=== PATIENT | male | born 1940 | race Caucasian/White ===

== ENCOUNTER 2022-12-11 15:33 | Outpatient (OUT) | payer MEDICARE, SELFPAY ==
[2022-12-11 15:52] LABS: Basophils Absolute Auto 0.1 10^3/uL (0.0-0.1); Basophils Percent Auto 0.6 % (0.2-2.0); Eosinophils Absolute Auto 0.1 10^3/uL (0.0-0.7); Eosinophils Percent Auto 1.6 % (0.9-7.0); Hematocrit 45.4 % (42.0-54.0); Hemoglobin 15.1 g/dL (14.0-18.0); Immature Granulocytes Abs Auto 0.04 10^3/uL (0.00-0.03); Immature Granulocytes Pct Auto 0.5 % (0.0-0.5); Lymphocytes Absolute Auto 2.1 10^3/uL (1.2-3.8); Mean Corpuscular HGB Conc 33.3 g/dL (29.9-35.2); Mean Corpuscular Volume 90.1 fL (80.0-94.0); Mean Platelet Volume 9.8 fL (9.5-13.5); Monocytes Absolute Auto 0.8 10^3/uL (0.3-0.8); Monocytes Percent Auto 9.5 % (1.7-12.0); Neutrophils Absolute Auto 5.5 10^3/uL (1.4-6.5); Neutrophils Percent Auto 63.8 % (43.0-75.0); Platelet Count 248 10^3/uL (150-450); Red Blood Count 5.04 10^6/uL (4.70-6.10); Red Cell Distribution Width 13.5 % (11.0-15.0); White Blood Count 8.5 10^3/uL (4.0-11.0)
[2022-12-11 16:37] LABS: Alanine Aminotransferase 28 U/L (16-63); Albumin Globulin Ratio 0.8; Albumin Level 3.8 g/dL (3.4-5.0); Alkaline Phosphatase 48 U/L (46-116); Anion Gap 12.5; Aspartate Amino Transferase 26 U/L (15-37); BUN Creatinine Ratio 15.7; Bilirubin Total 0.8 mg/dL (0.2-1.0); Calcium 9.5 mg/dL (8.5-10.1); Carbon Dioxide 29.5 mmol/L (21.0-32.0); Chloride 101 mmol/L (98-107); Estimated GFR (African America >60 (>=60); Estimated GFR (Non-African Ame >60 (>=60); Globulin 4.6 g/dL; Glucose 80 mg/dL (74-106); Sodium 140 mmol/L (136-145); Total Protein 8.4 g/dL (6.4-8.2)
[2022-12-11 16:49] LABS: Prostate Specific Antigen Scrn 9.41 ng/mL (<=4.00)
== END 2022-12-11 15:34 | disposition home or self-care (01) ==
PROVIDERS: PCP Family Medicine; Visit Provider Family Medicine
DX: L30.9 Dermatitis, unspecified (principal); N40.0 Benign prostatic hyperplasia without lower urinary tract symptoms; M19.90 Unspecified osteoarthritis, unspecified site; I10 Essential (primary) hypertension
CPT/HCPCS: 36415; 80053; 85025; G0103

== ENCOUNTER 2024-11-20 11:54 | Outpatient (OUT) | payer MEDICARE, SELFPAY ==
--- OUTSIDE RECORDS SUMMARY | 2024-11-20 12:00 | XMS_ITS | CCD ---
Author Organization [facility] ion Partnership [facility] Care Team Providers Care Configuration Management Analyst Name Role Phone ROCIO GARCIA Unavailable Unavailable Anjana Vargas Unavailable HOUSE, DR TOMPKINS Attending Unavailable HOUSE, DR TOMPKINS Consulting Unavailable HOUSE, DR TOMPKINS Primary Care Unavailable HOUSE, DR TOMPKINS Admitting Unavailable HOUSE, DO LEDA Krishna Attending Unavailable HOUSE, LEDA Krishna Primary Care Unavailable HOUSE, DO LEDA Krishna Attending Unavailable HOUSE, LEDA Krishna Primary Care Unavailable HOUSE, LEDA Krishna Primary Care Unavailable HOUSE, DO LEDA Krishna Attending Unavailable Problems Active Problems Problem Classification Problem Date Documented Date Episodic/Chronic Essential hypertension (1 source) Essential (primary) hypertension; Translations: [ESSENTIAL PRIMARY HYPERTENSION] Onset: 09-20-2021 Chronic Fluid and electrolyte disorders (4 sources) Hypokalemia; Translations: [HYPOKALEMIA] Onset: 09-19-2021 Episodic Hyperplasia of prostate (1 source) Benign prostatic hyperplasia without lower urinary tract symptoms; Translations: [BENIGN PROSTATIC HYPRPLASIA WO LUTS] Onset: 09-20-2021 Chronic Osteoarthritis (1 source) Unspecified osteoarthritis, unspecified site; Translations: [UNSPECIFIED OSTEOARTHRITIS UNS SITE] Onset: 09-20-2021 Chronic Past or Other Problems Problem Classification Problem Date Documented Da te Episodic/Chronic Immunizations and screening for infectious disease (1 source) Encounter for screening for other viral diseases Onset: 06-02-2021 Resolved: 06-02-2021 Episodic Results Test Name Value Interpretation Reference Range Facility CBC AUTO DIFFon 09-19-2021 BASO # 0.0 103/ul Normal 0.0-0.1 [facility] Comment on above: Performed By: #### C BC #### [facility] [address] [place], [place] [address] Dr. Romina Beckwith Basophils/100 WBC (Bld) 0.4 % Normal 0.2-2.0 [facility] Comment on above: Performed By: #### C BC #### [facility] [address] [place] [address] [address] Romina Beckwith EO # 0.2 103/ul Normal 0.0-0.7 [facility] Comment on above: Performed By: #### C BC #### [facility] [address] [place] [address] Dr. Romina Beckwith Eosinophils/100 WBC (Bld) 2.1 % Normal 0.9-7.0 [facility] Comment on above: Performed By: #### C BC #### [facility] [address] [place] [address] Dr. Romina Beckwith Erythrocyte distribution width (RBC) [Ratio] 13.7 % Normal 11.0-15.0 [facility] Comment on above: Performed By: #### C BC #### [facility] [address] [place] [address] Dr. Romina Beckwith Hematocrit (Bld) [Volume fraction] 48.2 % Normal 42.0-54.0 [facility] Comment on above: Performed By: #### C BC #### [facility] [address] [place] [address] Dr. Romina Beckwith Hemoglobin (Bld) [Mass/Vol] 15.7 g/dL Normal 14.0-18.0 [facility] Comment on above: Performed By: #### C BC #### [facility] [address] [place] [address] Dr. Romina Beckwith IG # 0.03 10e3/ul Normal 0.00-0.03 [facility] Comment on above: Performed By: #### C BC #### [facility] [address] [place] [address] Dr. Romina Beckwith IG % 0.3 % Normal 0.0-0.5 [facility] Comment on above: Performed By: #### C BC #### [facility] [address] [place] [address] Dr. Romina Beckwith LYMPH # 2.3 103/ul Normal 1.2-3.8 [facility] Comment on above: Performed By: #### C BC #### [facility] [address] [place] [address] Dr. Romina Beckwith Lymphocytes/100 WBC (Bld) 24.5 % Normal 20.5-60.0 [facility] Comment on above: Performed By: #### C BC #### [facility] [address] [place] [address] Dr. Romina Beckwith MANUAL DIFF REQ NO Normal [facility] Comment on above: Performed By: #### C BC #### [facility] [address] [place] [address] Dr. Romina Beckwith MCH (RBC) [Entitic mass] 29.5 pg Normal 25.9-34.0 [facility] Comment on above: Performed By: #### C BC #### [facility] [address] [place] [address] Dr. Romina Beckwith MCHC (RBC) [Mass/Vol] 32.6 g/dL Normal 29.9-35.2 [facility] Comment on above: Performed By: #### C BC #### [facility] [address] [place] [address] Dr. Romina Beckwith MCV (RBC) [Entitic vol] 90.6 fL Normal 80.0-94.0 [facility] Comment on above: Performed By: #### C BC #### [facility] [address] [place] [address] Dr. Romina Beckwith MONO # 0.8 103/ul Normal 0.3-0.8 [facility] Comment on above: Performed By: #### C BC #### [facility] [address] [place] [address] Dr. Romina Beckwith Monocytes/100 WBC (Bld) 8.9 % Normal 1.7-12.0 [facility] Comment on above: Performed By: #### C BC #### [facility] [address] [place] [address] Dr. Romina Beckwith NEUT # 5.9 103/ul Normal 1.4-6.5 [facility] Comment on above: Performed By: #### C BC #### [facility] [address] [place] [address] Dr. Romina Beckwith Neutrophils/100 WBC (Bld) 63.8 % Normal 43.0-75.0 [facility] Comment on above: Performed By: #### C BC #### [facility] [address] [place] [address] Dr. Romina Beckwith Platelet mean volume (Bld) [Entitic vol] 10.5 fL Normal 9.5-13.5 [facility] Comment on above: Performed By: #### C BC #### [facility] [address] [place] [address] Dr. Romina Beckwith PLT 268 103/ul Normal 150-450 [facility] Comment on above: Performed By: #### C BC #### [facility] [address] [place] [address] Dr. Romina Beckwith RBC 5.32 106/ul Normal 4.70-6.10 [facility] Comment on above: Performed By: #### C BC #### [facility] [address] [place] [address] Dr. Roimna Beckwith WBC 9.3 103/ul Normal 4.0-11.0 [facility] Comment on above: Performed By: #### C BC #### [facility] [address] [place] [address] Dr. Romina Beckwith PROF 14(COMP METB)on 022 Albumin [Mass/Vol] 3.8 g/dL Normal 3.4-5.0 [facility] Comment on above: Performed By: #### C MP #### [facility] [address] [place] [address] Dr. Romina Beckwith Albumin/Globulin [Mass ratio] 0.9 {ratio} Normal [facility] Comment on above: Performed By: #### C MP #### [facility] [address] [place] [address] Dr. Romina Beckwith ALP [Catalytic activity/Vol] 48 U/L Normal 46-116 [facility] Comment on above: Performed By: #### C MP #### [facility] [address] [place] [address] Dr. Romina Beckwith ALT [Catalytic activity/Vol] 30 U/L Normal 16-63 [facility] Comment on above: Performed By: #### C MP #### [facility] [address] [place] [address] Dr. Romina Beckwith Anion gap [Moles/Vol] 15.0 mmol/L Normal [facility] Comment on above: Performed By: #### C MP #### [facility] [address] [place] [address] Dr. Romina Beckwith AST [Catalytic activity/Vol] 26 U/L Normal 15-37 [facility] Comment on above: Performed By: #### C MP #### [facility] [address] [place] [address] Dr. Romina Beckwith Bilirubin [Mass/Vol] 0.7 mg/dL Normal 0.2-1.0 [facility] Comment on above: Performed By: #### C MP #### [facility] [address] [place] [address] Dr. Romina Beckwith Calcium [Mass/Vol] 9.3 mg/dL Normal 8.5-10.1 [facility] Comment on above: Performed By: #### C MP #### [facility] [address] [place] [address] Dr. Romina Beckwith Chloride [Moles/Vol] 102 mmol/L Normal 98-107 [facility] Comment on above: Performed By: #### C MP #### [facility] [address] [place] [address] Dr. Romina Beckwith CO2 [Moles/Vol] 27.2 mmol/L Normal 21.0-32.0 [facility] Comment on above: Performed By: #### C MP #### [facility] [address] [place] [address] Dr. Romina Beckwith Creatinine [Mass/Vol] 1.15 mg/dL Normal 0.70-1.30 [facility] Comment on above: Performed By: #### C MP #### [facility] [address] [place] [address] Dr. Romina Beckwith EGFR-AF ERITREAN >60 Normal >=60 [facility] Comment on above: Performed By: #### C MP #### [facility] [address] [place] [address] [address] Romina Beckwith EGFR-NON AF ERITREAN >60 Normal >=60 [facility] Comment on above: Performed By: #### C MP #### [facility] [address] [address] [address] Romina Beckwith Globulin (S) [Mass/Vol] 4.3 g/dL Normal [facility] Comment on above: Performed By: #### C MP #### [facility] [address] [address] [address] Romina Beckwith Glucose [Mass/Vol] 93 mg/dL Normal 74-106 [facility] Comment on above: Performed By: #### C MP #### [facility] [address] [address] [address] Romina Beckwith Potassium [Moles/Vol] 3.2 mmol/L Critically low 3.5-5.1 [facility] Comment on above: Performed By: #### C MP #### [facility] [address] [address] [address] Romina Beckwith Protein [Mass/Vol] 8.1 g/dL Normal 6.4-8.2 [facility] Comment on above: Performed By: #### C MP #### [facility] [address] [place] [address] [address] Romina Beckwith Sodium [Moles/Vol] 141 mmol/L Normal 136-145 [facility] Comment on above: Performed By: #### C MP #### [facility] [address] [address] [address] Romina Beckwith Urea nitrogen [Mass/Vol] 16.0 mg/dL Normal 7.0-18.0 [facility] Comment on above: Performed By: #### C MP #### [facility] [address] [place] [address] [address] Romina Beckwith Urea nitrogen/Creatini ne [Mass ratio] 13.9 mg/mg Normal [facility] Comment on above: Performed By: #### C MP #### [facility] [address] [address] [address] Romina MCGHEE Quick Testingon 2021 Result Negative [facility] Other ALLIED HEALTHon 01-17-2018 ALLIED HEALTH HNO ID: [id number]: Marii Manriquez (Rt): (none)Author Type: TechnicianType: Allied HealthFiled: 01/17/2018 1:38 PMNote Text: Radiology Service Progress NotePATIENT NAME: Rey MayorgaMRN: [id number] OF SERVICE: January 17, 2018TIME: 1:10 PMPATIENT IDENTITY VERIFICATION COMPLETED USING TWO (2) METHODS: Patientconfirmed name verbally and Date of .PATIENT GENDER DATA: MalePATIENT RELEVANT IMPLANT DATA REVIEWED: YesRADIOLOGY DEPARTMENT: MR; Exam(s) Completed: Body: ProstatePERIPHERAL IV DATA: Site assessment: Clean,Dry and Intact, Sitedisposition DiscontinuedSIGNED BY: Jake Manriquez 2017 1:10 PM [facility] MRI PROSTATE WO/W IVCONon Protein mass conc * * *Final Report* * *DATE OF EXAM: Jan 17 2018 1:41PM [facility] 0751 - MRI PROSTATE WO/W IVCON / REASON: r97.2 * * * * Physician Interpretation * * * * EXAMINATION: MRI PELVIS WITHOUT AND WITH CONTRAST (MULTIPARAMETRIC PROSTATE MRI):CLINICAL HISTORY: 77-year-old man being evaluated for prostate cancer. Prior biopsy and PSA results are not available.Previous biopsy: NAPSA: NAPrior therapy: NATECHNIQUE: Multiparametric MRI of the prostate and pelvis performed on a 3T (Siemens 3T TrioTim) MR system utilizing a torso phased array coil.Sequences obtained:Sagittal, axial and coronal high resolution T2-WI with small [id number];Axial diffusion weighted images with multiple B-values and creation of ADC-maps;Dynamic contrast enhanced T1-weighted images through the prostate were also obtained before, during and after the administration of intravenous gadolinium. Subsequently, larger field of view 3D T1 weighted axial images were obtained through the pelvis.Prostate dimension, volume and pharmacokinetics were obtained using a semi-automated software (StudyBlue).M: MRPro_2Contrast: IV administration of 20 ml of DotaremCOMPARISON: NoneRESULT:Prostate:Dim ensions: 7.0 x 6.6 x 7.6 cm corresponding to a volume of approximately 139 cc.Peripheral zone: No focal abnormalities with imaging features concerning for prostate cancer.PI-RADS score 2Transition zone:Lesion#: 1Location: left apex anterior transition zoneGreatest dimension: 1.2-cm (series: 9; image: 11)T2-WI: Lenticular or non-circumscribed, homogenous, moderately hypointense AND < 1.5 cm (Score: 4)DWI/ADC: Focal markedly hypointense on ADC and markedly hyperintense on DWI; <1.5 cm (Score: 4)DCE: PositiveExtra-prostatic extension: Probably absentPI-RADS assessment category: 4Central zone: The central zone is not well seen.Neurovascular bundle: Unremarkable.Seminal vesicles: Unremarkable.Adjacent Organ Involvement: No bladder or rectal invasion.Lymphadenopath y: NoneOther Findings: None.IMPRESSION:PI-RADS 4 ANTERIOR LEFT TRANSITION ZONE APEX LESION.NO PELVIC LYMPHADENOPATHY.======= ======Number of targets created for MR/US fusion biopsy:Peripheral zone: 0Transition zone: 1Targets were numbered in order of level of suspicion for clinically significant prostate cancer (Liz score 3 + 4 or higher).PI-RADS assessment categories:PI-RADS 1: Clinically significant cancer is highly unlikelyPI-RADS 2: Clinically significant cancer is unlikelyPI-RADS 3: Clinically significant cancer is equivocalPI-RADS 4: Clinically significant cancer is likelyPI-RADS 5: Clinically significant cancer is highly likelyTranscriptionist: PSCSamantha Transcribe Date/Time: Jan 17 2018 2:19PDictated by : DONNA COTTRELL MDThikisha examination was interpreted and the report reviewed and electronically signed by: LANNY LINDER MD on Jan 17 2018 4:36PM [id number] [facility] NURSING PROGon 01-17-2018 Protein mass conc HNO ID: [id number]: Jalyn BaumRn) GERALDINE Carreraervice: RadiologyAuthor Type: Registered NurseType: Nursing Progress NoteFiled: 01/17/2018 12:38 PMNote Text: Radiology Service Progress NotePATIENT NAME: Rey MayorgaMRN: [id number] OF SERVICE: January 17, 2018TIME: 12:36 PMPATIENT WEIGHT: 212 LBSPATIENT IDENTITY VERIFICATION COMPLETED USING TWO (2) METHODS: Patientconfirmed name verbally and ID band matches..PATIENT GENDER DATA: MaleCONTRAST INDUCED NEPHROPATHY RISK FACTORS: Patient age > 60 yearsCREATININE: No results found for: CREAT, EGFROTH, EGFRAAP.O.C.T. RESULTS: POC done: Yes, See Lab Tab January 17, 2018TREATMENT: No Hydration needed.ALLERGIES: Reviewed and unchangedCONTRAST ALLERGY: NO.IV SITE: Ambulatory: A peripheral IV was started in the Left forearmwith a Angio cath: 22 gauge.diffusicIV SITE APPEARANCE: Clean,Dry and IntactSIGNED BY: Anup Jacob 2017 12:36 PM [facility] Encounters Encounter Date Encounter Type Care Provider Facility Start: 11-20-2024 ambulatory LEDA VORA Faci lity:[facility] Start: 05-26-2024 ambulatory LEDA VORA Faci lity:[facility] Start: 11-27-2023 End: 11-27-2023 ambulatory LEDA VORA Facility:[facility] Start: 09-19-2021 End: 09-20-[address] LEDA VORA Facility: Start: 06-02-2021 End: 06-02-2021 ambulatory Anjana Vargas Other [facility] Other Start: 06-02-2021 Office outpatient vi sit 5 minutes Anjana Vargas [facility] Start: 01-17-2018 Patient encounter procedure [facility] Procedures Date Procedure Procedure Detail Performing Clinician Start: 09-19-[address] AKBAR VORA Comment on above: Performed By: #### P SAD #### [facility] [address] [place] [address] Dr. Romina Beckwith Payers Date Payer Category Payer Medicare [id number]. [id number] 1940 Unknown [id number] 1940 Unknown [id number] 1940 Unknown [id number] 1940 Unknown [id number] Social History Date Type Detail Facility Sex Assigned At [facility] Other Medication management note 06-12-2024 Note Date & Type Note Facility 06-12-2024 Note Entered by MARKY VORA DO on June 12, 2024 07:25:36 EDT From: LEDA VORA DO To: [facility]/pharmacy #[id number] Sent: 06/12/2024 07:25:36 EDT Subject: Medication Management Submitted: Complete:atenolol (atenolol 25 mg oral tablet) Signed by LEDA VORA DO 06/12/2024 07:25:00 EDT Approved with modifications: atenolol (ATENOLOL 25 MG TABLET) TAKE 1 TABLET BY MOUTH EVERY DAY Qty: 90 tab(s) Days Supply: 90 Refills: 1 Substitutions Allowed Route To Pharmacy - [facility]/pharmacy #[id number] From: [id number] To: LEDA VORA DO Sent: June 11, 2024 11:32:22 PM CDT Subject: Medication Management Due: June 12, 2024 12:02:09 AM CDT On Hold Pending Signature Dispensed Drug: atenolol (atenolol 25 mg oral tablet), TAKE 1 TABLET BY MOUTH EVERY DAY Quantity: 90 tab(s) Days Supply: 90 Refills: 1 Substitutions Allowed Notes from Pharmacy: [facility] Medication management note 06-08-2024 Note Date & Type Note Facility 06-08-2024 Note Entered by MARKY VORA DO on June 08, 2024 20:39:55 EDT From: LEDA VORA DO To: [facility]/pharmacy #[id number] Sent: 06/08/2024 20:39:55 EDT Subject: Medication Management Submitted: Complete:hydroCHLOROthiazide (hydroCHLOROthiazide 50 mg oral tablet) Signed by LEDA VORA DO 06/08/2024 20:39:00 EDT Approved with modifications: hydroCHLOROthiazide (HYDROCHLOROTHIAZIDE 50 MG TAB) TAKE 1 TABLET BY MOUTH EVERY DAY Qty: 90 tab(s) Days Supply: 90 Refills: 1 Substitutions Allowed Route To Pharmacy - [facility]/pharmacy #[id number] From: [id number] To: LEDA VORA DO Sent: June 07, 2024 6:44:49 AM CDT Subject: Medication Management Due: June 08, 2024 12:05:30 AM CDT On Hold Pending Signature Dispensed Drug: hydroCHLOROthiazide (hydroCHLOROthiazide 50 mg oral tablet), TAKE 1 TABLET BY MOUTH EVERY DAY Quantity: 90 tab(s) Days Supply: 90 Refills: 1 Substitutions Allowed Notes from Pharmacy: [facility] Evaluation note 06-02-2021 Note Date & Type Note Facility 06-02-2021 Evaluation note Encounter Date Diagnosis Assessment Notes May, Encounter for screening for other viral diseases (ICD-10 - Z11.59) May, Other Additional time spent conducting pre-visit phone call, screening for symptoms, instructions on social distancing, application and removal of PPE, and cleaning of examination room, equipment and supplies was preformed. Patient education given for testing methodology and results. Patient care instructions given in writting by [facility] document. [facility] Other Summary Purpose Family History No Family History Records FoundNo Family History Records FoundNo Family History Records Found Advance Directives No Advanced Directives Records FoundNo Advanced Directives Records FoundNo Advanced Directives Records Found Additional Source Comments (unrecognized sect ion and content) No Status Records FoundNo Status Records FoundNo Status Records Found INFORMATION SOURCE (unrecogn ized section and content) DATE CREATED AUTHOR 01/19/2018 [facility] DATE CREATED AUTHOR AUTHOR'S ORGANIZ ATION 09/20/2021 [facility] DATE CREATED AUTHOR AUTHOR'S ORGANIZ ATION 11/17/[address] [facility] REASON FOR VISIT (unrecogniz ed section and content) ELDER RANGER, EXPSOURE TO WIF E, ASYMPTOMATIC FOR RECORDS PERTAINING TO PATIENTS WHO ARE OR HAVE BEEN ENROLLED IN A CHEMICAL DEPENDENCY/SUBSTANCEABUSE PROGRAM, SOME INFORMATION MAY BE OMITTED. This clinical summary was aggregated from multiple sources. Caution should be exercised in using it in the provision of clinical care. This summary normalizes information from multiple sources, and as a consequence, information in this document may materially change the coding, format and clinical context of patient data. In addition, data may be omitted in some cases. CLINICAL DECISIONS SHOULD BE BASED ON THE PRIMARY CLINICAL RECORDS. [employer] provides no warranty or guarantee of the accuracy or completeness of information in this document.
[2024-11-20 12:30] LABS: Hematocrit 44.2 % (42.0-54.0); Hemoglobin 15.1 g/dL (14.0-18.0); Immature Granulocytes Abs Auto 0.02 10^3/uL (0.00-0.03); Immature Granulocytes Pct Auto 0.3 % (0.0-0.5); Lymphocytes Absolute Auto 1.7 10^3/uL (1.2-3.8); Mean Corpuscular HGB Conc 34.2 g/dL (29.9-35.2); Mean Corpuscular Hemoglobin 30.1 pg (25.9-34.0); Mean Corpuscular Volume 88.2 fL (80.0-94.0); Platelet Count 218 10^3/uL (150-450); Red Blood Count 5.01 10^6/uL (4.70-6.10); White Blood Count 7.9 10^3/uL (4.0-11.0)
[2024-11-20 14:03] LABS: Alanine Aminotransferase 21 U/L (16-63); Albumin Globulin Ratio 1.0; Albumin Level 4.1 g/dL (3.4-5.0); Alkaline Phosphatase 65 U/L (46-116); Anion Gap 17.3; Aspartate Amino Transferase 20 U/L (15-37); Blood Urea Nitrogen 35.0 mg/dL (7.0-18.0); Calcium 9.4 mg/dL (8.5-10.1); Carbon Dioxide 25.2 mmol/L (21.0-32.0); Chloride 103 mmol/L (98-107); Cholesterol 249 mg/dL (<=200); Estimated GFR (African America 40 (>=60 mL/min/1.73m^2); Estimated GFR (Non-African Ame 33 (>=60 mL/min/1.73m^2); Globulin 4.1 g/dL; Glucose 94 mg/dL (74-106); HDL Cholesterol 44 mg/dL (40-60); Potassium 3.5 mmol/L (3.5-5.1); Sodium 142 mmol/L (136-145); Total Protein 8.2 g/dL (6.4-8.2); Triglycerides 191 mg/dL (<=150); VLDL CHOLESTEROL 38.2 mg/dL
== END 2024-11-20 11:55 | disposition home or self-care (01) ==
LOC: LAB 11:57
PROVIDERS: PCP Family Medicine; Visit Provider Family Medicine
DX: N40.0 Benign prostatic hyperplasia without lower urinary tract symptoms (principal); I10 Essential (primary) hypertension; M19.90 Unspecified osteoarthritis, unspecified site; L30.9 Dermatitis, unspecified; F41.9 Anxiety disorder, unspecified; E11.9 Type 2 diabetes mellitus without complications; R00.1 Bradycardia, unspecified; Z12.5 Encounter for screening for malignant neoplasm of prostate
CPT/HCPCS: 36415; 80053; 80061; 82043; 83036; 85025; G0103